=== PATIENT | female | born 1935 | race Two or more races ===

== ENCOUNTER 2018-09-30 00:13 | Inpatient (IN) | payer MEDICAID, OTHER ==
[2018-09-30] MEDS ORDERED: NS 1,000 ML IV ONE ×2 (00:19→02:43)
[2018-09-30] MEDS ORDERED: SODIUM ZIRCONIUM CYCLOSILICATE 10 GM PACKET PO ONE (00:19)
--- NOTE | 2018-09-30 00:22 | EDPHY ---
H & P Stated Complaint: hyperkalemia Time Seen by Provider: 09/30/18 00:19 HPI/ROS: HPI The patient presents with a dehydration, hyperkalemia, brought in by ambulance from [facility]. The patient is currently being treated for a urinary tract infection with ciprofloxacin. There was some concern for dehydration so labs were checked earlier today. Patient was found to have a potassium of 6 and a BUN of 80. She was encouraged to drink p. O. Fluids intake Kayexalate, however she refused both of these treatments. Nurse at her [facility] noticed that her blood pressure was lower than usual with a systolic of 80. She seemed more confused than her baseline. At baseline, she is alert, confused, and verbal. According to her paperwork sent from the [facility], she is a full code. She has a history of a CVA, difficulty swallowing, hyperlipidemia. . REVIEW OF SYSTEMS 10 systems were reviewed and negative with the exception of the elements mentioned in the history of present illness. PMHx: Recent urinary tract infection, history of CVA Soc Hx: Resides at [facility], here with her sons PHYSICAL General Appearance: Alert, no distress Eyes: Pupils equal and round no pallor or injection ENT, Mouth: Mucous membranes moist Respiratory: There are no retractions, lungs are clear to auscultation Cardiovascular: Regular rate and rhythm Gastrointestinal: Abdomen is soft and non-tender, no masses, bowel sounds normal Neurological: A&O, moves all extremities Skin: Warm and dry, no rashes Musculoskeletal: Neck is supple non tender Extremities: symmetrical, full range of motion Psychiatric: there is no agitation Source: Patient, Family, assisted records, Old records Exam Limitations: Physical impairment Constitutional: Initial Vital Signs Temperature (C) 36.4 C 09/30/18 00:15 Heart Rate 90 09/30/18 00:15 Respiratory Rate 16 09/30/18 00:15 Blood Pressure 104/84 H 09/30/18 00:15 O2 Sat (%) 97 09/30/18 00:15 O2 Delivery Mode Room Air Allergies/Adverse Reactions: No Known Allergies Allergy (Unverified 09/30/18 01:02) Home Medications: Medication Instructions Recorded Acetaminophen [Tylenol 325mg (*)] 650 mg PO Q6 PRN 09/30/18 Acetaminophen [Tylenol ES 500 mg 1,000 mg PO BID 09/30/18 (*)] Aspirin EC [Aspirin EC 81 mg (*)] 81 mg PO DAILY 09/30/18 Calcium Polycarbophil [FIBERCON] 625 mg PO Q8H PRN 09/30/18 Ergocalciferol [Vitamin D2 (*)] 50,000 unit PO Q28D 09/30/18 Herbals/Supplements -Info Only 1 tab PO DAILY 09/30/18 Metoprolol Succinate Xr [Toprol Xl 25 mg PO DAILY 09/30/18 25 mg (*)] guaiFENesin [Robitussin 200 MG (*)] 200 mg PO Q5H PRN 09/30/18 Medical Decision Making - Diagnostics EKG Interpretation: EKG: Complete interpretation has been separately recorded in the [facility] archive. Summary impression: Normal sinus rhythm Imaging Results: Imaging Impressions Chest X-Ray 09/30/18 01:04 Impression: 1. No acute pulmonary disease. 2. Atherosclerotic thoracic aorta. Imaging: I viewed and interpreted images myself Differential Diagnosis: 82-year-old female status post CVA residing at [facility] with dementia, dysphagia, hypertension, currently being treated with ciprofloxacin for urinary tract infection, presents from her [facility] with dehydration, potassium of 6 with BUN of 80. Baseline renal function is unclear. Plan for IV fluids, basic labs. Patient was given 1 L normal saline. Labs checked revealed ongoing acute renal failure with potassium of 6 and BUN in the 80s. EKG shows no peaked T-waves or other signs of hyperkalemia. Because of this I gave her Lokelma. Because of this we started her on maintenance fluids. Other labs demonstrated urinary tract infection, because of this she was given a dose of ceftriaxone and urine cultures were sent. Her mental status did not improved with fluids. I suspect she needs to be admitted to the hospital for ongoing treatment. I have consulted with the hospitalist computer information science professor Dr. Kumar who will admit the patient. I discussed our plans with the patient's son who is at the bedside. - Data Points Laboratory Results: Laboratory Results 09/30/18 00:50 09/30/18 00:50 Medications Given: Acetaminophen (Tylenol) 1,000 mg PO BID CYRUS Stop: 03/29/19 20:59 Last Admin: 09/30/18 20:00 Dose: 1,000 mg Enoxaparin Sodium (Lovenox) 30 mg SC DAILY CYRUS Stop: 07/12/19 08:59 Last Admin: 09/30/18 09:01 Dose: 30 mg Sodium Chloride (Ns) 1,000 mls @ 100 mls/hr IV CONT CYRUS Stop: 03/29/19 04:29 Last Admin: 09/30/18 20:00 Dose: 1,000 mls Metoprolol Succinate (Toprol Xl) 25 mg PO DAILY CYRUS Stop: 03/29/19 12:59 Last Admin: 09/30/18 14:09 Dose: 25 mg Discontinued Medications Sodium Chloride (Ns) 1,000 mls @ 0 mls/hr IV EDNOW ONE; Wide Open PRN Reason: Protocol Stop: 09/30/18 00:20 Last Admin: 09/30/18 00:50 Dose: 1,000 mls Ceftriaxone Sodium/Dextrose (Rocephin 1 Gm (Premix)) 50 mls @ 100 mls/hr IV EDNOW ONE PRN Reason: Protocol Stop: 09/30/18 03:03 Last Admin: 09/30/18 02:43 Dose: 50 mls Sodium Chloride (Ns) 1,000 mls @ 0 mls/hr IV EDNOW ONE; Wide Open PRN Reason: Protocol Stop: 09/30/18 02:44 Last Admin: 09/30/18 02:44 Dose: 1,000 mls Miscellaneous Medication (Lokelma) 10 gm PO EDNOW ONE Stop: 09/30/18 00:20 Last Admin: 09/30/18 01:17 Dose: 10 gm Departure - Departure Disposition: [facility] Acute Clinical Impression: Hyperkalemia, Dehydration Acute renal failure Qualifiers: Acute renal failure type: unspecified Qualified Code(s): N17.9 - Acute kidney failure, unspecified UTI (urinary tract infection) Qualifiers: Urinary tract infection type: site unspecified Hematuria presence: without hematuria Qualified Code(s): N39.0 - Urinary tract infection, site not specified Condition: Fair
[2018-09-30 01:09] LABS: PLATELET COUNT 470 10^3/uL (150-400)
[2018-09-30] MEDS ORDERED: ONDANSETRON 4 MG/2 ML VIAL IVP PRN (04:27)
[2018-09-30] MEDS ORDERED: ONDANSETRON DISINTEGRATING 4 MG TAB PO PRN (04:27)
[2018-09-30] MEDS ORDERED: ACETAMINOPHEN 325 MG TAB PO PRN (04:27)
[2018-09-30 07:18] LABS: PLATELET COUNT 341 10^3/uL (150-400)
--- NOTE | 2018-09-30 07:57 | GHP ---
DATE OF ADMISSION: 09/30/2018 CHIEF COMPLAINT: Elevated potassium. HISTORY OF PRESENT ILLNESS: This is an 82-year-old female who lives at [facility]. She is status post CVA and is not very interactive and could not participate in the history. Apparently, she was diagnosed with urinary tract infection last week and given 3 days of ciprofloxacin. However, she has been having decreased p.o. intake and lower blood pressure and more confused than baseline. Labs we re ordered and she had potassium of 6 and BUN of 80. REVIEW OF SYSTEMS: Unable to obtain secondary to patient's dementia. PAST MEDICAL HISTORY: 1. Previous CVA. 2. Dementia. 3. Hyperlipidemia. 4. Dysphagia. MEDICATIONS: Reviewed. SOCIAL HISTORY: Lives at [facility]. Sons are involved. PHYSICAL EXAM: VITAL SIGNS: Afebrile, blood pressure is 104/84, heart rate 90, oxygen saturation 97 % on room air. GENERAL: The patient is resting, not very interactive. HEENT: Dry mucous membranes . NECK: Supple. LUNGS: Poor effort but clear to auscultation bilaterally. CARDIOVASCULAR: Regul ar rate and rhythm. ABDOMEN: Positive bowel sounds. Soft, nontender. No CVA tenderness. EXTREMIT IES: No clubbing, cyanosis, or edema. SKIN: Without rash. LABS: White count elevated at 12, platelets are 470. Sodium 132, potassium 6.3, creatinine 1.7, AST at 65, ALT 95, and alkaline phosphatase of 185. UA does show urinary tract infection. ASSESSMENT: This is an 82-year-old female presenting with urinary tract infection (UTI), worsening m ental status, hyperkalemia, and dehydration. PLAN: 1. Urinary tract infection. We will check culture and treat with ceftriaxone initially. 2. Hyperkalemia. There are no EKG changes. We will continue to monitor on tele. She will receive some Kayexalate. 3. EKG. Personally reviewed and interpreted. It looks like a slow A flutter versus atrial fibrilla tion, and there are no peaked T-waves. We will monitor on telemetry. She has received a dose of ___ . We will see what in a few hours. 4. Acute renal failure. We will give her IV fluids. 5. Atrial fibrillation versus atrial flutter. Continue to monitor on tele. She, apparently, does n ot have a history of this. She is not on anticoagulation. 6. Vascular dementia. 7. Dysphagia. The patient is not very interactive at this point. We will keep her n.p.o. until Spe ech can see her. 8. Elevated liver function tests. Her alkaline phosphatase is elevated which may be concerning for some gallbladder disease, and we will get an abdominal ultrasound. 9. Patient is full code. /[id number]/MODL
--- NOTE | 2018-09-30 08:22 | HOSPPROG ---
Hospitalist Progress Note Assessment/Plan: [facility] Patient Name: GERMAINE MAYO V Rpt#: [id number] Unit Number: [id number] Attending/ER Physician: Lorri Kumar MD Patient Type: ADM IN Adm Date/Source: 09/30/18 EMR Discharge Date: Primary Carrier: [facility] [facility] [place] IP Germaine is an 82-year-old female presenting with urinary tract infection (UTI), worsening mental status, hyperkalemia, and dehydration. *UTI -cx pending -ceftriaxone *hyperkalemia -resolved w Kayexalate *aflutter vs afib -reviewed her 12 lead myself and looks like aflutter -resumed her home beta kunal *ARF -creat improved w hydration -will follow *Vascular dementia -she's alert, oriented to herself *dysphagia -reviewed her care w ST- diet ordered *elevated LFT -better today *plan continue the above. Possibly could return to [facility] tomorrow. >30 minutes seeing patient and follow up care. Subjective: Germaine is smiling, nods her head yes when asked if she is hungry. Objective: Vital Signs Temp Pulse Resp BP Pulse Ox 36.6 C 79 1 L 126/73 H 96 09/30/18 07:28 09/30/18 07:28 09/30/18 07:28 09/30/18 07:28 09/30/18 07:28 Laboratory Results 09/30/18 06:40 09/30/18 06:40 09/29/18 09/30/18 10/01/18 05:59 05:59 05:59 Intake Total 1700 Balance 1700 - Physical Exam Constitutional: chronically ill appearing Eyes: PERRL Ears, Nose, Mouth, Throat: hearing normal Cardiovascular: regular rate and rhythym, other (slighty irregular) Respiratory: no respiratory distress Skin: warm Musculoskeletal: generalized weakness Neurologic: other (alert) Psychiatric: interacting appropriately ICD10 Worksheet Patient Problems: Problems Problem Status Onset Hyperkalemia Acute - ICD10 Problem Qualifiers (1) Hyperkalemia
[2018-09-30] MEDS: ENOXAPARIN 30 MG/0.3 ML SYR SC SCH (09:01)
[2018-09-30] MEDS: NS 1,000 ML IV SCH ×2 (09:02→20:00)
--- NOTE | 2018-09-30 12:05 | PDMN ---
Medical Necessity Medical necessity: Pt meets INPT criteria per MD as of 09/30/18 and MCG M-300 UTI (est. LOS >2 MN for eval/mgmt of UTI, acute renal failure, hyperkalemia, afib vs aflutter; hx CVA, vascular dementia, dysphagia).
[2018-09-30] MEDS ORDERED: guaiFENesin 200 MG TAB PO PRN (12:49)
[2018-09-30] MEDS ORDERED: ERGOCALCIFEROL 50,000 I.UNIT CAP PO SCH (13:00)
--- NOTE | 2018-09-30 13:32 | ASMTCMCOM ---
CM Note CM Note Notes: Case Management Chart Review for Discharge Support: Patient is a 82 year old female, presenting via ambulance from [facility] where she was recieving treatment for Urinary Tract Infection. She presents with symptoms of dehydration & confusion. Past medical history includes CVA, difficulty swallowing, hyperlipidemia. Sons were present in ED, Guilherme Joe'delmar information on patient board: [phone]. Patient to continue medical work up, CM available to follow. D/C Plan: TBD, return to [facility]. Date Signed: 09/30/2018 01:31 PM Electronically Signed By:Debbie Hernandez
[2018-09-30] MEDS: METOPROLOL SUCCINATE XR 25 MG TAB PO SCH (14:09)
[2018-09-30] MEDS: ACETAMINOPHEN 500 MG TAB PO SCH (20:00)
--- NOTE | 2018-09-30 23:07 | CPEKG ---
Test Reason : OPEN Blood Pressure : / mmHG Vent. Rate : 106 BPM Atrial Rate : 326 BPM P-R Int : 145 ms QRS Dur : 074 ms QT Int : 330 ms P-R-T Axes : 084 040 078 degrees QTc Int : 439 ms Atrial fibrillation Ventricular premature complex Minimal ST depression, lateral leads Confirmed by Cecilia Griffin ([id number]) on 09/30/2018 11:07:02 PM Referred By: Confirmed By:Cecilia Griffin
[2018-10-01] MEDS: METOPROLOL SUCCINATE XR 25 MG TAB PO SCH (08:06)
[2018-10-01] MEDS: ENOXAPARIN 30 MG/0.3 ML SYR SC SCH (08:06)
[2018-10-01] MEDS: ACETAMINOPHEN 500 MG TAB PO SCH (08:07)
[2018-10-01] MEDS ORDERED: Herbals/Supplements -Info Only PO SCH (09:00)
[2018-10-01] MEDS ORDERED: ASPIRIN EC 81 MG TAB PO SCH (09:00)
--- NOTE | 2018-10-01 11:49 | HOSPPROG ---
Hospitalist Progress Note Assessment/Plan: [facility] Patient Name: ELIZABETH MAYO V Rpt#: [id number] Unit Number: [id number] Attending/ER Physician: Lorri Kumar MD Patient Type: ADM IN Adm Date/Source: 09/30/18 EMR Discharge Date: Primary Carrier: [employer] [facility] [facility] [place] IP Elizabeth is an 82-year-old female presenting with urinary tract infection (UTI), worsening mental status, hyperkalemia, and dehydration. *UTI -cx showing no growth -ceftriaxone x 2 doses *hematuria -needs f/u *hyperkalemia -resolved w Kayexalate *aflutter vs afib -reviewed her 12 lead myself and looks like aflutter -resumed her home beta kunal -today in sinus rhythm *ARF -creat improved w hydration -will follow *Vascular dementia -she's alert, oriented to herself *dysphagia -reviewed her care w ST- diet ordered *elevated LFT -better today *plan : dc to [facility] Subjective: elizabeth doesn't like the food here Objective: Vital Signs Temp Pulse Resp BP Pulse Ox 36.3 C 64 16 133/61 H 98 10/01/18 07:26 10/01/18 07:26 10/01/18 07:26 10/01/18 07:26 10/01/18 07:26 Laboratory Results 09/30/18 06:40 09/30/18 10/01/18 10/02/18 05:59 05:59 05:59 Intake Total 1700 750 Output Total 500 Balance 1700 250 - Physical Exam Constitutional: appears nourished, not in pain, chronically ill appearing Eyes: PERRL Ears, Nose, Mouth, Throat: hearing normal Cardiovascular: regular rate and rhythym Respiratory: no respiratory distress Gastrointestinal: normoactive bowel sounds Skin: warm Musculoskeletal: generalized weakness Neurologic: other (alert) Psychiatric: poor memory ICD10 Worksheet Patient Problems: Problems Problem Status Onset Acute renal failure Acute Dehydration Acute Hyperkalemia Acute UTI (urinary tract infection) Acute - ICD10 Problem Qualifiers (1) Hyperkalemia
[2018-10-01 12:02] VITALS: BP 141/56
--- NOTE | 2018-10-01 14:40 | PDIAF ---
- Diagnosis Diagnosis: pyuria, hematuria, hyperkalemia Code Status: Full Code - Medication Management Discharge Medications: electronically signed and located in the Home Medication List. - Orders Services needed: Physical Therapy, Occupational Therapy Diet Recommendation: no restrictions on diet Diet Texture: Dysphagia 1 - Pureed, Thin Liquids, Meds Whole in Puree Additional Instructions: f/u with urologist for evaluation of hematuria - Labs/Radiology BMP Date: 10/08/18 - Follow Up Care Current Providers and Referrals: ALLYSON COOK [Primary Care Provider] - As per Instructions
--- NOTE | 2018-10-01 14:52 | ASMTLACE ---
LACE Length of stay for Answers: 1 day current admission Acuity / Level of Answers: Yes Care: Did the patient have an inpatient admission? Comorbidities - select Answers: Cerebrovascular disease all that apply (CVA, TIA, aneurysms, vasc ular dementia) Coronary Artery Disease Dementia Other Notes: Dysphagia # of Emergency department Answers: 0 visits in the last 6 months Score: 11 Date Signed: 10/01/2018 02:52 PM Electronically Signed By:JOSE Bellamy
--- NOTE | 2018-10-01 14:59 | ASMTDCNOTE ---
Case Management Discharge Discharge Order Complete? Answers: Yes Patient to Obtain Answers: Other Notes: [facility] Medications Transportation Arranged Answers: [facility] W[facility]C EMTALA Complete Answers: No Case Management Transport Answers: Yes Form Complete Faxed Final Orders Answers: Yes Family Notified Answers: Yes Discharge Comments Notes: Pts case discussed w/ Jagruti Lee NP. Pt is being d/c'd today back to [facility]. CM arranged transportation w/ [facility] via wheelchair. CM completed PCS form in the off chance they send a stretcher, although pt does not have medicare to cover the stretcher. DC orders sent. CM notified pts cristiane Willis of the d/c. [facility] RN will call to give report. CM available for changes. Plan: [facility] Date Signed: 10/01/2018 02:59 PM Electronically Signed By:JOSE Bellamy
--- NOTE | 2018-10-01 15:02 | ASDISCHSUM ---
Discharge Information Plan Status:SNF Medically Cleared to Leave:09/30/2018 Discharge Date:09/30/2018 CM D/C Disposition: ADT D/C Disposition:[facility] Facility Projected Discharge Date:10/01/2018 11:00 AM Transportation at D/C: Discharge Delay Reason: Follow-Up Date:10/01/2018 11:00 AM Discharge Slot: Final Diagnosis: Placement Information Referral Type:*Longterm/SNF Referral ID:[id number] Provider Name:Zachary Buck/[facility] Address 1:[address] Address 2: Fax Number: [facility] Selection Factors: State:[place] Patient Contact Information Contact Name:CATRACHITO Relationship: Address:ZACHARY BUCK [address] City:[place] Alternate Phone: State/Zip Code:[place] [address] Email: Financial Information Financial Class:Medicaid Primary Plan Desc:[place] Primary Plan Number:[id number] Secondary Plan Desc: Secondary Plan Number: Assessment Information [facility] CM Progress Note CM Note CM Note Notes: Case Management Chart Review for Discharge Support: Patient is a 82 year old female, presenting via ambulance from [facility] where she was recieving treatment for Urinary Tract Infection. She presents with symptoms of dehydration & confusion. Past medical history includes CVA, difficulty swallowing, hyperlipidemia. Sons were present in ED, Guilherme Joe's information on patient board: [phone]. Patient to continue medical work up, CM available to follow. D/C Plan: TBD, return to [facility]. Date Signed: 09/30/2018 01:31 PM Electronically Signed By:Debbie Hernandez LACE LACE Length of stay for Answers: 1 day current admission Acuity / Level of Answers: Yes Care: Did the patient have an inpatient admission? Comorbidities - select Answers: Cerebrovascular disease all that apply (CVA, TIA, aneurysms, vasc ular dementia) Coronary Artery Disease Dementia Other Notes: Dysphagia # of Emergency department Answers: 0 visits in the last 6 months Score: 11 Date Signed: 10/01/2018 02:52 PM Electronically Signed By:JOSE Bellamy Case Management Discharge Plan Note Case Management Discharge Discharge Order Complete? Answers: Yes Patient to Obtain Answers: Other Notes: [facility] Medications Transportation Arranged Answers: [facility] W[facility] EMTALA Complete Answers: No Case Management Transport Answers: Yes Form Complete Faxed Final Orders Answers: Yes Family Notified Answers: Yes Discharge Comments Notes: Pts case discussed w/ Jagruti Lee NP. Pt is being d/c'd today back to [facility]. CM arranged transportation w/ [facility] via wheelchair. CM completed PCS form in the off chance they send a stretcher, although pt does not have medicare to cover the stretcher. DC orders sent. CM notified pts guilherme Willis of the d/c. VERONICA Simon will call to give report. CM available for changes. Plan: [facility] Date Signed: 10/01/2018 02:59 PM Electronically Signed By:JOSE Bellamy Intervention Information
--- NOTE | 2018-10-01 16:38 | GDS ---
DISCHARGE DIAGNOSES: 1. Urinary tract infection. 2. Hematuria. 3. Hyperkalemia. 4. Atrial flutter versus atrial fibrillation. 5. Acute renal failure. 6. Vascular dementia. 7. Dysphagia. 8. Elevated liver enzymes. Briefly this is an 82-year-old woman with vascular dementia who lives at [facility]. She is status post a CVA and is not very active and was unable to participate much with her history. Apparently, she had a UTI prior to admission, was treated with Cipro and she has been having decreased p.o. intake and low blood pressure, more confused than her baseline. Labs were ordered and she had a potassium of 6 and BUN of 80. She was admitted. She was treated with Kayexalate. Her potassium normalized. Today, she is alert, up in a chair eating, remains overall confused. I suspect this is her baseline. HOSPITAL COURSE: 1. Urinary tract infection. Her culture showed no growth, but she improved significantly after getting treatment with ceftriaxone. Will give her another few days of Ceftin. 2. Hematuria. Recommendation is further follow up with Urology. 3. Hyperkalemia, resolved with Kayexalate. 4. Atrial flutter versus atrial fibrillation. Her 12-lead showed A flutter. Today, she is in sinus rhythm. She is on a beta kunal. 5. Acute renal failure. Her creatinine improved with hydration. Her most recent creatinine from yesterday is 0.7. 6. Vascular dementia. She is alert and oriented to herself. 7. Dysphagia. Dietary has made recommendations for diet. 8. Elevated liver function tests. This is better today. I suspect she was dehydrated, not eating that well. DISCHARGE CONDITION: Stable. Blood pressure is 141/56, heart rate is 64, respiratory rate is 16, O2 sats on room air 93%, temperature 36.3 Celsius. MEDICATIONS AT DISCHARGE: Please see the EMR. DISCHARGE INSTRUCTIONS: 1. Further followup in regard to her hematuria. 2. Recommending today she continue dysphagia diet here at [facility]. /[id number]/MODL MTDD
[2018-10-02] MEDS ORDERED: ENOXAPARIN 40 MG/0.4 ML SYR SC SCH (09:00)
== END 2018-10-01 17:28 | DRG 469 ==
LOC: EDUNIT# → F3E 03:58
PROVIDERS: ADMIT Internal Medicine; ATTEND Internal Medicine
DX: N17.9 Acute kidney failure, unspecified (principal); E87.5 Hyperkalemia; R31.9 Hematuria, unspecified; E86.0 Dehydration; I48.91 Unspecified atrial fibrillation; N39.0 Urinary tract infection, site not specified; I69.991 Dysphagia following unspecified cerebrovascular disease; F01.50 Vascular dementia, unspecified severity, without behavioral disturbance, psychotic disturbance, mood disturbance, and anxiety; I48.92 Unspecified atrial flutter; R74.8 Abnormal levels of other serum enzymes; Z87.440 Personal history of urinary (tract) infections
CPT/HCPCS: 92526-GN; 92610-GN; 96365; 97162-GP; 97166-GO; 97530-GP; J0696; J1650